=== PATIENT | male | born 2000 | race Caucasian/White ===

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

== ENCOUNTER 2021-03-03 20:38 | Emergency (ER) | payer BC, OTHER ==
[2021-03-03 21:08] VITALS: BP 151/89; PULSE 104; TEMP 99; BMI 39.3
[2021-03-03] MEDS ORDERED: IBUPROFEN 600 MG TABLET (FP) PO ONE ×2 (21:08→21:17)
== END 2021-03-03 22:12 | disposition home or self-care (01) ==
LOC: FER 20:38
DX: S89.91XA Unspecified injury of right lower leg, initial encounter (principal); X50.9XXA Other and unspecified overexertion or strenuous movements or postures, initial encounter; Y93.67 Activity, basketball
CPT/HCPCS: 73562-TC-RT-FY; 99283-25

== ENCOUNTER 2025-01-05 16:56 | Emergency (ER) | payer BC ==
[2025-01-05 17:31] VITALS: BP 122/74; PULSE 64; RESP 18; TEMP 98.1; BMI 37.6
[2025-01-05] MEDS ORDERED: ACETAMINOPHEN 325 MG TABLET (FP) ONE (17:40)
[2025-01-05] MEDS ORDERED: LIDOCAINE HCL 2% JELLY 10 ML CARTRIDGE ONE (17:41)
[2025-01-05] MEDS: LIDOCAINE HCL 2% JELLY (30 ML/TUBE) TP ONE (17:50)
[2025-01-05] MEDS: ACETAMINOPHEN 325 MG TABLET (FP) PO ONE (17:59)
[2025-01-05] MEDS: HYDROCORTISONE 0.5% TOPICAL CREAM 30 GM TUBE TP PRN (18:01)
[2025-01-05] MEDS: LIDOCAINE HCL 5% TOP OINTMENT 50 GM TUBE TP ONE (18:09)
== END 2025-01-05 18:12 | disposition home or self-care (01) ==
LOC: FER 16:56
DX: K64.4 Residual hemorrhoidal skin tags (principal); K62.89 Other specified diseases of anus and rectum
CPT/HCPCS: 99283-25